=== PATIENT | male | born 1965 | race American Indian/Alaskan Native ===

== ENCOUNTER 2016-10-17 20:14 | Emergency (ER) | payer SELFPAY ==
[2016-10-17 21:05] VITALS: BP 174/98
[2016-10-17] MEDS ORDERED: DECADRON IM STA (23:58)
--- NOTE | 2016-10-17 23:58 | Emergency Department Report ---
ED Rash HPI - HPI Chief Complaint: Skin Rash Stated Complaint: BODY RASH Time Seen by Provider: 10/17/16 23:57 Duration: 4 Days Location: Back, Abdomen, Upper Extremities Suspected Cause: Plant Rash Symptoms: Yes Itching, No Facial Swelling, No Tongue/Oral Swelling, No Breathing Difficulties, No Choking Sensation, No Wheezing/Dyspnea, No Peeling, No Blistering, No Fever, No Lightheaded, No Malaise, No Myalgias Severity: moderate Other History: Patient here reports that he has skin rash 4 days and that he got it from poison [place]. He said he was outdoors and his friend got the same problem also. Reportable rash to arms abdomen and back. It is 5 out of 10 she said use Benadryl at home. Denies any nausea vomiting. Denies any respiratory distress. ED Review of Systems ROS: Stated complaint: BODY RASH Other details as noted in HPI Comment: All other systems reviewed and negative Constitutional: denies: chills, fever Respiratory: no symptoms reported Cardiovascular: denies: chest pain, palpitations, edema, syncope Gastrointestinal: denies: nausea, vomiting Musculoskeletal: denies: arthralgia Skin: rash, pruritus Neurological: denies: headache ED Past Medical Hx - Past Medical History Previous Medical History?: Yes Hx Hypertension: Yes Additional medical history: Eczema - Surgical History Past Surgical History?: No - Family History Family history: hypertension - Social History Smoking Status: Current Every Day Smoker Substance Use Type: Alcohol - Medications Home Medications: Home Medications Medication Instructions Recorded Confirmed Last Taken Type Famotidine [Pepcid] 20 mg PO BID #30 tablet 03/14/14 Unknown Rx Hydrocortisone 2.5% [Hytone 2.5% 1 applicatio TP TID #3 tube 03/14/14 Unknown Rx CREAM] Loratadine [Claritin] 10 mg PO DAILY #30 tablet 03/14/14 Unknown Rx hydrOXYzine HCL [Atarax] 25 mg PO Q6HR PRN #20 tablet 03/14/14 Unknown Rx predniSONE [Deltasone] 50 mg PO QDAY #5 tab 03/14/14 Unknown Rx Hydroxyzine HCl 50 mg PO Q6H PRN #30 tablet 10/18/16 Unknown Rx methylPREDNISolone [Medrol] 4 mg PO QAM #1 tab.ds.pk 10/18/16 Unknown Rx Rash Exam - Exam General: Vital signs noted. No distress. Alert and acting appropriately. This is a 51-year-old male well-nourished well-developed in no acute distress.. Head: normocephalic, atraumatic Neck: Supple, full range of motion, no tracheal deviation. No C-spine tenderness Mouth:oral airway patent, moist.uvula midline and tongue normal Lungs: Clear to auscultate bilaterally no rhonchi wheezes or rales. Cardiovascular: S1, S2. regular Rate and rhythm. Blood pressure is elevated 174/98 with history of high blood pressure and no medication taken today. EXT: No clubbing, cyanosis or edema. No neurovascular compromise. 2+ pulses.CAP Refill is less than 3 seconds. Psych: Normal mood and head HEENT: No Periorbital Edema, No Conjuctival Injection, No Chemosis, No Perioral Edema, No Tongue Edema, No Uvular Edema, No Compromised Airway, No Drooling Lungs: Yes Good Air Exchange, No Wheezes, No Ronchi, No Stridor, No Cough, No Labored Respirations, No Retractions, No Use of Accessory Muscles, No Other Abnormal Lung Sounds Heart: Yes Regular, No Murmur Skin: Yes Excoriations, Yes Other (patient with rash to bilateral upper extremity, abdomen, back and chest. Nontender to palpate, some crusting. No vesicles or blisters noted. No erythema noted.), No Urticarial Rash, No Maculopapular Rash, No Morbilliform rash, No Bulla(e), No Weeping, No Tenderness , No Erythema, No Edema, No Encrustations Other: Positive: Abdomen Normal, Neurologic Normal, Musculoskeletal Normal ED Course Vital Signs 10/17/16 21:02 Temperature 97.7 F Pulse Rate 86 Respiratory 20 Rate Blood Pressure 174/98 [Right] O2 Sat by Pulse 99 Oximetry - Reevaluation(s) Reevaluation #1: 10/18/16 00:57 Decadron 10 mg IM and emergency room for rash. ED Medical Decision Making - Medical Decision Making ED Course: Acid patient that he has contact dermatitis which appears to be from poison 10. Areas are healing. Patient is taking Benadryl at home and I discussed with him that he cannot take Benadryl while he was driving as this will cause drowsiness. 10 Mg IM and Emergency Room. I Discussed Diagnosis and Treatment Plan with Him and He Voiced Understanding. Discharged Home with Prescription for Medrol Dosepak and Atarax. Critical care attestation.: If time is entered above; I have spent that time in minutes in the direct care of this critically ill patient, excluding procedure time. ED Disposition Clinical Impression: Pruritic dermatitis Contact dermatitis Qualifiers: Contact dermatitis type: unspecified Contact dermatitis trigger: unspecified trigger Qualified Code(s): L25.9 - Unspecified contact dermatitis, unspecified cause Disposition: DISCHARGED TO HOME OR SELFCARE Is pt being admited?: No Does the pt Need Aspirin: No Condition: Stable Instructions: Contact Dermatitis (ED), Itchy Skin (ED) Additional Instructions: Keep affected area clean and dry Take medication as prescribed Atarax cause drowsiness so please do not drive or operate heavy machinery while taking this medication for itching Follow-up with displayer as instructed Prescriptions: Hydroxyzine HCl 50 mg PO Q6H PRN #30 tablet PRN Reason: Itching methylPREDNISolone [Medrol] 4 mg PO QAM #1 tab.ds.pk Referrals: DARLENE JUSTICE MD [Staff Physician] - 2-3 Days PRIMARY CARE, [Primary Care Provider] - 2-3 Days [facility] [Outside] - 2-3 Days Forms: Accompanied Note, Work/School Release Form(ED)
== END 2016-10-18 01:15 | disposition home or self-care (01) ==
LOC: ED 20:14
DX: L25.9 Unspecified contact dermatitis, unspecified cause (principal); I10 Essential (primary) hypertension; F17.200 Nicotine dependence, unspecified, uncomplicated
CPT/HCPCS: 96372; 99281; J1100